=== PATIENT | male | born 2000 | race African-American/Black ===

== ENCOUNTER 2021-02-25 10:05 | Emergency (ER) | payer MEDICAID ==
[~2021-02-25] VITALS: Ht 165.1 cm; Wt 95.3 kg
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
--- NOTE | 2021-02-25 10:32 | NUR ---
PATIENT PROVIDED WITH WATER.
--- NOTE | 2021-02-25 10:47 | NUR ---
PATIENT REFUSED TO PROVIDE BLOOD AND URINE, REFUSED ANY TREATMENT. PATIENT'S HR RANGES FROM 99-110. DR. TILLMAN AT BEDSIDE.
[2021-02-25 10:57] VITALS: BP 160/100
--- NOTE | 2021-02-25 10:57 | NUR ---
Patient discharged to home in stable condition. Written and verbal after care instructions given. Patient verbalizes understanding of instruction.
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
== END 2021-02-25 10:57 | disposition home or self-care (01) ==
LOC: ER 10:17
DX: Z02.89 Encounter for other administrative examinations (principal); I10 Essential (primary) hypertension; R00.0 Tachycardia, unspecified; F41.9 Anxiety disorder, unspecified